=== PATIENT | female | born 1990 | race Caucasian/White ===

== ENCOUNTER 2017-06-23 02:04 | Inpatient (IN) | payer BC ==
[2017-06-23] MEDS ORDERED: Ondansetron 4 MG/2 ML SDV IVPUSH PRN ×2 (02:49→09:00)
[2017-06-23] MEDS ORDERED: Aluminum Hydroxide/Magnesium Hydroxide/Simethicone Susp 30 ML Cup PO PRN (02:49)
[2017-06-23] MEDS ORDERED: Sodium Chloride 0.9% 10 ML Syringe FLUSH PRN (02:49)
[2017-06-23] MEDS ORDERED: Lidocaine 1% 50 ML MDV INJECT ONE (02:49)
[2017-06-23] MEDS ORDERED: Nalbuphine 20 MG/1 ML Amp IVPUSH PRN (02:49)
[2017-06-23] MEDS ORDERED: Lactated Ringers 1,000 ML ONE (02:55)
[2017-06-23] MEDS: Lactated Ringers 1,000 ML IV SCH ×5 (03:00→14:57)
--- NOTE | 2017-06-23 03:08 | PCM.LDHP ---
L&D History of Present Illness - General Date of Service: 06/23/17 Admit Problem/Dx: Patient Status Order with Admit Dx/Problem 06/23/17 02:50 Patient Status [ADT] Routine Admission Diagnosis/Problem Admission Diagnosis/Problem 06/23/17 02:54 39-1/7 week intrauterine , spontaneous rupture membranes, active labor with increase in cervical dilation 06/23/17 02:55 Source of Information: Patient History Limitations: Reports: No Limitations - History of Present Illness Introduction:: Verenice is a 27-year-old 1 para 0 white female who is admitted to labor and delivery at approximately 0300 hrs. on 06/23/2017 at 38-0/7 weeks gestational age and an BATSHEVA of 06/30/2017 with reported spontaneous rupture membranes. She reports a gush of fluid initiallyand now a slow continuous involuntary leak, with symptoms starting at approximately 0015 hours on 06/23/2017. She was juan carlos minimally before that and had actually rested somewhat. She is juan carlos every 3-4 minutes now, intense in nature. Fluid is clear but minimally blood-tinged. Heart tones are reassuring although occasional variable decelerations are noted. Variability and accelerations are good. course: She is a 1 para 0 with an BATSHEVA of 06/30/2017 as based upon an early ultrasound done at 7-4/7 weeks gestational age on 12/02/2016 and supported by another ultrasound on 02/17/2017. The patient has had a relatively unremarkable course. She is a centering patient. Her first visit was on 12/02/2016. She is made regular visits. Her weight gain has been from 129.8 pounds up to 159.2 pounds for a 30 pound weight gain. Vital signs stable throughout the . Fundal height growth has been appropriate and babies been in a vertex presentation. She declined genetic evaluation. [place] depression scale score was performed on 2016 and was normal. Patient failed her 1 hour glucose tolerance test but passed her 3 hour glucose tolerance test area is group B strep negative. She is desiring epidural in labor and delivery for analgesia. She declined flu vaccination. She plans to breast-feed. laboratory testing: Blood type is AB+. Advised screen is negative. First hemoglobin was 14.4 g or deciliter. Platelets were 199,000 at that time. She is rubella immune. RPR is nonreactive. Urine cultures negative. Hepatitis B surface antigen and HIV assays were negative. Chlamydia and gonorrhea assays were both negative. Second trimester hemoglobin was 12.3 g/dL. Platelets are 169,000. Her 1 hour GTT was elevated and a 3 hour glucose tolerance test was done. At that time fasting blood sugar was 82, 1 hour sugar was 144, 2 hour sugars 126 and 3R glucose was 117. Allergies: none Medications: vitamins 1 daily Past medical history on patient has allergy to cats and hay. Past surgical history: Unremarkable Family history is positive for maternal aunt with lupus. Maternal aunt with depression/anxiety. Maternal grandmother with hepatitis C which she got from a blood transfusion. Maternal aunts with hypothyroidism. Maternal uncle with rectal cancer. Maternal grandfather with appendiceal cancer. Paternal grandfather with myeloma and paternal grandmother with colon cancer. No anesthesia, bleeding, blood clotting problems noted in the family. Social history: Patient is , lives in [place], [place]. is Octavio. She does not use any significant loss of alcohol, drugs or tobacco. Review of systems: Patient is uncomfortable secondary to contractions at this time. Otherwise reports good movement and no other concerns Skin: Negative Cardiovascular: No chest pain or exercise intolerance Respiratory: No infectious symptoms or shortness of breath Breasts: Changes associated principally. Patient plans to breast-feed GI: Negative : Increased fundal height and changes associated with . Musculoskeletal: Negative Neurological: Negative Physical exam: General patient is a well-developed, well-nourished, pleasant female of stated age in moderate distress secondary to labor. She is alert and oriented 3 and appears to be good historian. Skin is warm and dry without lesions. HEENT, neck and back within normal limits Lungs are clear with good breath sounds in all lung hunter. Cardiovascular exam shows regular rate and rhythm without murmurs Breasts exam is deferred admitted on the first visit found to be normal. Abdomen is protuberant with fundal height on last evaluation clinic on 06/20/2017 at 37+ centimeters with baby in a vertex presentation by Justice maneuver. Cervix is 4 cm dilated, 90% effaced, -1 station, anterior to mid position, grossly ruptured with pink tinged but clear amniotic fluid. Cervix is very soft. Musculoskeletal and neurological exam within normal limits. H&P Review of Systems - Review of Systems: Review Of Systems: See Below L&D Exam - Exam Exam: See Below Problem List Initiated/Reviewed/Updated: Yes Orders Last 24hrs: Active Orders 24 hr Category Date Time Status Patient Status [ADT] Routine ADT 06/23/17 02:50 Ordered Activity as Tolerated [RC] PFP Care 06/23/17 02:50 Ordered Communication Order [RC] ASDIRECTED Care 06/23/17 02:50 Ordered Heart Tones [RC] ASDIRECTED Care 06/23/17 02:50 Ordered Notify Provider Vital Signs [RC] PRN Care 06/23/17 02:49 Ordered Notify Provider [RC] PFP Care 06/23/17 02:50 Ordered Notify Provider [RC] PRN Care 06/23/17 02:50 Ordered Peripheral IV Care [RC] . DIRECTED Care 06/23/17 02:50 Ordered Pump Management, Intrathecal [RC] ASDIRECTED Care 06/23/17 02:49 Ordered Vital Signs [RC] PER UNIT ROUTINE Care 06/23/17 02:50 Ordered Regular Diet [DIET] Diet 06/22/17 Dinner Ordered CBC W/O DIFF,HEMOGRAM [HEME] Stat Lab 06/23/17 02:49 Ordered Alum Hydrox/Mag Hydrox/Simeth [Mag-Al Plus] Med 06/23/17 02:49 Ordered 30 ml PO Q8H PRN Lactated Ringers [Ringers, Lactated] 1,000 ml Med 06/23/17 03:00 Ordered IV ASDIRECTED Lidocaine 1% [Xylocaine 1%] Med 06/23/17 02:49 Once 10 ml INJECT ONETIME ONE Nalbuphine [Nubain] Med 06/23/17 02:49 Ordered 10 mg IVPUSH Q2H PRN Ondansetron [Zofran] Med 06/23/17 02:49 Ordered 4 mg IVPUSH Q4H PRN Sodium Chloride 0.9% [Saline Flush] Med 06/23/17 02:49 Ordered 10 ml FLUSH ASDIRECTED PRN Electronic Heart Tones Ext w TOCO [WOMSER] Oth 06/23/17 02:50 Ordered Routine Electronic Heart Tones Internal [WOMSER] Per Unit Oth 06/23/17 02:50 Ordered Routine Peripheral IV Insertion Adult [OM.PC] Routine Oth 06/23/17 02:50 Ordered Resuscitation Status Routine Resus Stat 06/23/17 02:49 Ordered Assessment/Plan Comment:: Assessment 1. 39-0/7 week intrauterine , spontaneous rupture membranes, active labor with change in cervical dilation 2. Group B strep status negative 3. Rubella immune 4. Patient desiring epidural in labor 5. Patient plans to breast-feed Plan: 1. Anticipate normal spontaneous vaginal delivery 2. Epidural when necessary 3. Support breast-feeding 4. Platelet count 1 CBC upon admission
[2017-06-23] MEDS ORDERED: fentaNYL 100 MCG/2 ML SDV EPIDUR PRN (09:00)
[2017-06-23] MEDS ORDERED: ePHEDrine 50 MG/ML SDV IVPUSH PRN (09:00)
[2017-06-23] MEDS ORDERED: diphenhydrAMINE 50 MG/ML SDV IVPUSH PRN (09:00)
[2017-06-23] MEDS ORDERED: Bupivacaine/fentaNYL/NS 100 ML Bag EPIDUR SCH (09:00)
--- NOTE | 2017-06-23 11:52 | PCM.PREANE ---
Preanesthetic Assessment - Anesthesia/Transfusion/Family Hx Anesthesia History: No Prior Anesthesia Family History of Anesthesia Reaction: No Transfusion History: No Prior Transfusion(s) Intubation History: Unknown - Review of Systems General: No Symptoms Pulmonary: No Symptoms Cardiovascular: No Symptoms Gastrointestinal: No Symptoms Neurological: No Symptoms Other: Reports: None - Physical Assessment Pulse: 14 O2 Sat by Pulse Oximetry: 98 Respiratory Rate: 18 Blood Pressure: 110/71 Vital Signs: Last Vital Signs Temp 36.9 C 06/23/17 02:13 Pulse 14 L 06/23/17 07:15 Resp 18 06/23/17 02:13 BP 110/71 06/23/17 02:30 Pulse Ox 98 06/23/17 02:13 Weight: 71.849 kg ASA Class: 2 Mental Status: Alert & Oriented x3 Airway Class: Mallampati = 1 Dentition: Reports: Normal Dentition Thyro-Mental Finger Breadths: 3 Mouth Opening Finger Breadths: 3 ROM/Head Extension: Full Lungs: Clear to Auscultation, Normal Respiratory Effort Cardiovascular: Regular Rate, Regular Rhythm - Lab Values: Laboratory Last Values WBC 9.16 K/mm3 (3.98-10.04) 06/23/17 03:00 RBC 4.23 M/mm3 (3.98-5.22) 06/23/17 03:00 Hgb 11.4 gm/L (11.2-15.7) 06/23/17 03:00 Hct 35.3 % (34.1-44.9) 06/23/17 03:00 MCV 83.5 fl (79.4-94.8) 06/23/17 03:00 MCH 27.0 pg (25.6-32.2) 06/23/17 03:00 MCHC 32.3 g/dl (32.2-35.5) 06/23/17 03:00 RDW Std Deviation 39.8 fL (36.4-46.3) 06/23/17 03:00 Plt Count 174 K/mm3 (182-369) L 06/23/17 03:00 MPV 11.8 fl (9.4-12.3) 06/23/17 03:00 - Allergies Allergies/Adverse Reactions: Allergies Allergy/AdvReac Type Severity Reaction Status Date / Time No Known Allergies Allergy Verified 06/23/17 09:03 - Acknowledgements Anesthesia Type Planned: Epidural Pt an Appropriate Candidate for the Planned Anesthesia: Yes Alternatives and Risks of Anesthesia Discussed w Pt/Guardian: Yes Pt/Guardian Understands and Agrees with Anesthesia Plan: Yes 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 Smoking Status *Q: Never Smoker Second Hand Smoke Exposure: No Recreational Drug Use History: No - CURRENT (IN HOUSE) MEDS Current Meds: Current Medications Al Hydroxide/Mg Hydroxide (Mag-Al Plus) 30 ml PO Q8H PRN PRN Reason: Heartburn Diphenhydramine HCl (Benadryl) 25 mg IVPUSH Q6H PRN PRN Reason: Pruritis Ephedrine Sulfate (Ephedrine Sulfate) 5 mg IVPUSH ASDIRECTED PRN PRN Reason: Hypotension Last Admin: 06/23/17 10:28 Dose: 5 mg Fentanyl (Sublimaze) 100 mcg EPIDUR ONETIME PRN PRN Reason: Pain Last Admin: 06/23/17 09:38 Dose: 100 mcg Fentanyl/Bupivacaine HCl (Fentanyl/Bupivacaine/Ns 2 Mcg-0.125% 100 Ml) 100 ml EPIDUR ASDIRECTED [facility] Last Admin: 06/23/17 09:38 Dose: 100 ml Lactated Ringer's (Ringers, Lactated) 1,000 mls @ 100 mls/hr IV ASDIRECTED [facility] Last Admin: 06/23/17 10:34 Dose: 100 mls/hr Nalbuphine HCl (Nubain) 10 mg IVPUSH Q2H PRN PRN Reason: Pain (moderate 4-6) Ondansetron HCl (Zofran) 4 mg IVPUSH Q4H PRN PRN Reason: Nausea/Vomiting Ondansetron HCl (Zofran) 4 mg IVPUSH ONETIME PRN PRN Reason: Nausea/Vomiting Sodium Chloride (Saline Flush) 10 ml FLUSH ASDIRECTED PRN PRN Reason: Keep Vein Open Discontinued Medications Lactated Ringer's (Ringers, Lactated) Confirm Administered Dose 1,000 mls @ as directed .ROUTE .STK-MED ONE Stop: 06/23/17 02:56 Lidocaine HCl (Xylocaine 1%) 10 ml INJECT ONETIME ONE Stop: 06/23/17 02:50
[2017-06-23] MEDS ORDERED: Oxytocin/Lactated Ringers 10 UNIT/1,000 ML BAG IV SCH (14:45)
[2017-06-23] MEDS ORDERED: Lidocaine 1% 50 ML MDV ONE (16:06)
[2017-06-23] MEDS ORDERED: Benzocaine/Menthol 20%-0.5% Spray 56 GM Canister TOP PRN (16:54)
[2017-06-23] MEDS ORDERED: Ibuprofen 600 MG Tab PO PRN (16:54)
[2017-06-23] MEDS ORDERED: Witch Hazel Medicated Pads 100/Jar TOP PRN (16:54)
[2017-06-23] MEDS ORDERED: Acetaminophen 325 MG Tab PO PRN (16:54)
[2017-06-23] MEDS ORDERED: Lanolin 100% Cream 7 GM Tube TOP PRN (16:54)
[2017-06-23] MEDS ORDERED: Docusate Sodium 100 MG Cap PO PRN (16:54)
--- NOTE | 2017-06-23 16:59 | PCM.SN ---
- Free Text/Narrative Note: Verenice is a 27-year-old 1 now para 1001 white female is admitted in active labor. She has an BATSHEVA of 06/30/2017 and is presently at 39-0/7 weeks gestational age. She came in on the a.m. of 05/26/2017 in active labor with spontaneous rupture membranes. Amniotic fluid was clear. Patient progressed to complete cervical dilation by approximately 1500 hrs. Approximately 1 hour and 15 minutes at which time variable decelerations were descending down into the 50s to 70s and lasting for up to 1-1/2 minutes. This is made to proceed with vacuum extraction delivery. Vacuum extraction was discussed due to the patient and her . They appear to understand and wish to proceed. Macular extraction delivery occurred at 1616 hrs. baby in STEPHANIE position. The patient pushed 1 contraction and delivered the baby relatively easily. Baby was completely delivered and placed on mom's abdomen. Cord was allowed to quit pulsating and then was cut after clamped 2. Father cut the cord. The perineum had been infiltrated with lidocaine 0.5% approximately and cc. Secondary laceration occurred along the left lateral sulcus vaginal laceration. These were repaired in routine fashion with 3-0 Monocryl. The placenta delivered. It appeared intact, complete and delivered in a Wiley presentation and was discarded patient desire. blood loss was 200 mL. She plans to nurse. Condition: Good
[2017-06-23] MEDS: Ibuprofen 200 MG Tab PO PRN (19:15)
[2017-06-23] MEDS ORDERED: Bupivacaine 0.25% 10 ML SDV ONE (22:22)
--- NOTE | 2017-06-24 08:05 | PCM48HPAN ---
Post Anesthesia Note - EVALUATION WITHIN 48HRS OF ANESTHETIC Vital Signs in Normal Range: Yes Patient Participated in Evaluation: Yes Respiratory Function Stable: Yes Airway Patent: Yes Cardiovascular Function Stable: Yes Hydration Status Stable: Yes Pain Control Satisfactory: Yes Nausea and Vomiting Control Satisfactory: Yes Mental Status Recovered: Yes Pulse Rate: 92 Resp Rate: 16 Temperature: 37.2 C Blood Pressure: 119/74 - COMMENTS/OBSERVATIONS Free Text/Narrative:: no anesthesia complications noted
[2017-06-24] MEDS: Ibuprofen 200 MG Tab PO PRN ×2 (08:19→20:27)
--- NOTE | 2017-06-24 09:38 | PCM.SN ---
- Free Text/Narrative Note: exam Afebrile, chest clear, uterus at umbilicus -1. No heavy vaginal bleeding. No leg cramping. Dr. Kate Hagen called 1700 hrs. tonight probably home tomorrow.
[2017-06-25] MEDS: Ibuprofen 200 MG Tab PO PRN (04:02)
--- NOTE | 2017-06-25 06:27 | PCM.PNPP ---
- General Info Date of Service: 06/25/17 Functional Status: Reports: Pain Controlled, Tolerating Diet, Ambulating, Urinating - Review of Systems General: Reports: No Symptoms Pulmonary: Reports: No Symptoms Cardiovascular: Reports: No Symptoms Gastrointestinal: Reports: No Symptoms Genitourinary: Reports: No Symptoms Musculoskeletal: Reports: No Symptoms - Patient Data Vital Signs - Most Recent: Last Vital Signs Temp 37.0 C 06/24/17 20:32 Pulse 105 H 06/24/17 20:32 Resp 14 06/24/17 20:32 BP 114/81 06/24/17 20:32 Pulse Ox 99 06/24/17 20:32 Weight - Most Recent: 71.849 kg I&O - Last 24 Hours: Intake & Output 06/24/17 06/24/17 06/25/17 14:59 22:59 06:59 Intake Total 240 0 Balance 240 0 Lab Results - Last 24 Hours: Laboratory Results - last 24 hr 06/24/17 Range/Units 06:25 WBC 10.87 H (3.98-10.04) K/mm3 RBC 3.35 L (3.98-5.22) M/mm3 Hgb 9.0 L (11.2-15.7) gm/L Hct 28.5 L (34.1-44.9) % MCV 85.1 (79.4-94.8) fl MCH 26.9 (25.6-32.2) pg MCHC 31.6 L (32.2-35.5) g/dl RDW Std Deviation 39.8 (36.4-46.3) fL Plt Count 132 L (182-369) K/mm3 MPV 12.1 (9.4-12.3) fl Med Orders - Current: Current Medications Acetaminophen (Tylenol) 650 mg PO Q4H PRN PRN Reason: mild pain or fever Benzocaine/Menthol (Dermoplast Pain Relief [place]) 0 gm TOP ASDIRECTED PRN PRN Reason: Perineal Comfort Measure Last Admin: 06/23/17 18:39 Dose: 1 spray Docusate Sodium (Colace) 100 mg PO BID PRN PRN Reason: Constipation Last Admin: 06/24/17 20:27 Dose: 100 mg Emollient Ointment (Lansinoh Hpa) 0 gm TOP ASDIRECTED PRN PRN Reason: Sore Nipples Ibuprofen (Motrin) 600 mg PO Q4H PRN PRN Reason: Mild pain or fever Last Admin: 06/25/17 04:02 Dose: 600 mg Witch Andreea (Tucks) 1 pad TOP ASDIRECTED PRN PRN Reason: Hemorrhoid pain Last Admin: 06/23/17 18:39 Dose: 1 pad Discontinued Medications Al Hydroxide/Mg Hydroxide (Mag-Al Plus) 30 ml PO Q8H PRN PRN Reason: Heartburn Diphenhydramine HCl (Benadryl) 25 mg IVPUSH Q6H PRN PRN Reason: Pruritis Ephedrine Sulfate (Ephedrine Sulfate) 5 mg IVPUSH ASDIRECTED PRN PRN Reason: Hypotension Last Admin: 06/23/17 10:28 Dose: 5 mg Fentanyl (Sublimaze) 100 mcg EPIDUR ONETIME PRN PRN Reason: Pain Last Admin: 06/23/17 09:38 Dose: 100 mcg Fentanyl/Bupivacaine HCl (Fentanyl/Bupivacaine/Ns 2 Mcg-0.125% 100 Ml) 100 ml EPIDUR ASDIRECTED [facility] Last Admin: 06/23/17 09:38 Dose: 100 ml Lactated Ringer's (Ringers, Lactated) 1,000 mls @ 100 mls/hr IV ASDIRECTED [facility] Last Admin: 06/23/17 14:57 Dose: 100 mls/hr Lactated Ringer's (Ringers, Lactated) Confirm Administered Dose 1,000 mls @ as directed .ROUTE .K-MED ONE Stop: 06/23/17 02:56 Oxytocin/Lactated Ringer's (Pitocin In Lr 10 Units/1,000 Ml) 10 unit in 1,000 mls @ 500 mls/hr IV ASDIRECTED [facility] Last Admin: 06/23/17 14:57 Dose: 500 mls/hr Ibuprofen (Motrin) 600 mg PO Q4H PRN PRN Reason: Mild pain or fever Lidocaine HCl (Xylocaine 1%) 10 ml INJECT ONETIME ONE Stop: 06/23/17 02:50 Last Admin: 06/23/17 18:38 Dose: 10 ml Lidocaine HCl (Xylocaine 1%) Confirm Administered Dose 50 ml .ROUTE .STK-MED ONE Stop: 06/23/17 16:07 Nalbuphine HCl (Nubain) 10 mg IVPUSH Q2H PRN PRN Reason: Pain (moderate 4-6) Ondansetron HCl (Zofran) 4 mg IVPUSH Q4H PRN PRN Reason: Nausea/Vomiting Ondansetron HCl (Zofran) 4 mg IVPUSH ONETIME PRN PRN Reason: Nausea/Vomiting Sodium Chloride (Saline Flush) 10 ml FLUSH ASDIRECTED PRN PRN Reason: Keep Vein Open - Interaction Infant Disposition, : in Room with Family Interaction: Holding Infant Infant Feeding: Breastfed Infant; Nursed Well Support Person: - Recovery Exam Fundal Tone: Firm Fundal Level: 2 Fingerbreadths Below Umbilicus Fundal Placement: Midline Lochia Amount: Small Lochia Color: Rubra/Red Perineum Description: Intact, Minimal Bruising/Swelling Episiotomy/Laceration: Approximated Bladder Status: Nonpalpable Urinary Elimination: Voided - Exam General: Alert, Oriented, Cooperative GI/Abdominal Exam: Soft, Non-Tender Extremities: Normal Inspection Skin: Warm, Dry, Intact - Problem List & Annotations (1) 39 weeks gestation of SNOMED Code(s): 94316580 Code(s): Z3A.39 - 39 WEEKS GESTATION OF Status: Acute Current Visit: Yes (2) Normal labor SNOMED Code(s): 77571998 Code(s): O80 - ENCOUNTER FOR FULL-TERM UNCOMPLICATED DELIVERY; Z37.9 - OUTCOME OF DELIVERY, UNSPECIFIED Status: Acute Current Visit: Yes (3) Vaginal delivery SNOMED Code(s): 897737745 Code(s): O80 - ENCOUNTER FOR FULL-TERM UNCOMPLICATED DELIVERY Status: Acute Current Visit: Yes - Problem List Review Problem List Initiated/Reviewed/Updated: Yes - Assessment Assessment:: PPD#2 from - Plan Plan:: \ * Routine cares * Encourage breast feeding * Discharge home today
--- NOTE | 2017-06-25 06:31 | PCM.DCSUM1 ---
Discharge Summary - Discharge Data Discharge Date: 06/25/17 Discharge Disposition: Home, Self-Care 01 Condition: Good - Discharge Diagnosis/Problem(s) (1) 39 weeks gestation of SNOMED Code(s): 51839381 ICD Code: Z3A.39 - 39 WEEKS GESTATION OF Status: Acute Current Visit: Yes (2) Normal labor SNOMED Code(s): 04762213 ICD Code: O80 - ENCOUNTER FOR FULL-TERM UNCOMPLICATED DELIVERY; Z37.9 - OUTCOME OF DELIVERY, UNSPECIFIED Status: Acute Current Visit: Yes (3) Vaginal delivery SNOMED Code(s): 472508023 ICD Code: O80 - ENCOUNTER FOR FULL-TERM UNCOMPLICATED DELIVERY Status: Acute Current Visit: Yes - Patient Summary/Data Complications: None Consults: None Recommended Follow-up Testing/Procedures: Follow up with Dr. Rocha in 2 weeks Hospital Course: 27 y/o presented at 39 1/7 wks in labor and with SROM. Progressed well. Underwent an uncomplicated . Was discharged home on PPD#2. - Patient Instructions Diet: Regular Diet as Tolerated Activity: As Tolerated Activity, Other: Pelvic Rest for 6 weeks Driving: May Drive Today Showering/Bathing: May Shower Notify Provider of: Fever, Increased Pain, Swelling and Redness, Drainage, Nausea and/or Vomiting - Discharge Plan Home Medications: Home Meds Docusate Sodium [Colace] 100 mg PO BID PRN cap 06/25/17 [Rx] Ibuprofen [Motrin] 600 mg PO Q4H PRN tablet 06/25/17 [Rx] Patient Handouts: Home Care Instructions for Mom, Challenges and Solutions Referrals: Lori Lvoe MD [Physician] - (Dr. Rocha in 2 weeks ) - Discharge Summary/Plan Comment DC Time >30 min.: No - Patient Data Vitals - Most Recent: Last Vital Signs Temp 37.0 C 06/24/17 20:32 Pulse 105 H 06/24/17 20:32 Resp 14 06/24/17 20:32 BP 114/81 06/24/17 20:32 Pulse Ox 99 06/24/17 20:32 Weight - Most Recent: 71.849 kg I&O - Last 24 hours: Intake & Output 06/24/17 06/24/17 06/25/17 14:59 22:59 06:59 Intake Total 240 0 Balance 240 0 Lab Results - Last 24 hrs: Laboratory Results - last 24 hr 06/24/17 Range/Units 06:25 WBC 10.87 H (3.98-10.04) K/mm3 RBC 3.35 L (3.98-5.22) M/mm3 Hgb 9.0 L (11.2-15.7) gm/L Hct 28.5 L (34.1-44.9) % MCV 85.1 (79.4-94.8) fl MCH 26.9 (25.6-32.2) pg MCHC 31.6 L (32.2-35.5) g/dl RDW Std Deviation 39.8 (36.4-46.3) fL Plt Count 132 L (182-369) K/mm3 MPV 12.1 (9.4-12.3) fl Med Orders - Current: Current Medications Acetaminophen (Tylenol) 650 mg PO Q4H PRN PRN Reason: mild pain or fever Benzocaine/Menthol (Dermoplast Pain Relief [place]) 0 gm TOP ASDIRECTED PRN PRN Reason: Perineal Comfort Measure Last Admin: 06/23/17 18:39 Dose: 1 spray Docusate Sodium (Colace) 100 mg PO BID PRN PRN Reason: Constipation Last Admin: 06/24/17 20:27 Dose: 100 mg Emollient Ointment (Lansinoh Hpa) 0 gm TOP ASDIRECTED PRN PRN Reason: Sore Nipples Ibuprofen (Motrin) 600 mg PO Q4H PRN PRN Reason: Mild pain or fever Last Admin: 06/25/17 04:02 Dose: 600 mg Witch Andreea (Tucks) 1 pad TOP ASDIRECTED PRN PRN Reason: Hemorrhoid pain Last Admin: 06/23/17 18:39 Dose: 1 pad Discontinued Medications Al Hydroxide/Mg Hydroxide (Mag-Al Plus) 30 ml PO Q8H PRN PRN Reason: Heartburn Diphenhydramine HCl (Benadryl) 25 mg IVPUSH Q6H PRN PRN Reason: Pruritis Ephedrine Sulfate (Ephedrine Sulfate) 5 mg IVPUSH ASDIRECTED PRN PRN Reason: Hypotension Last Admin: 06/23/17 10:28 Dose: 5 mg Fentanyl (Sublimaze) 100 mcg EPIDUR ONETIME PRN PRN Reason: Pain Last Admin: 06/23/17 09:38 Dose: 100 mcg Fentanyl/Bupivacaine HCl (Fentanyl/Bupivacaine/Ns 2 Mcg-0.125% 100 Ml) 100 ml EPIDUR ASDIRECTED [facility] Last Admin: 06/23/17 09:38 Dose: 100 ml Lactated Ringer's (Ringers, Lactated) 1,000 mls @ 100 mls/hr IV ASDIRECTED [facility] Last Admin: 06/23/17 14:57 Dose: 100 mls/hr Lactated Ringer's (Ringers, Lactated) Confirm Administered Dose 1,000 mls @ as directed .ROUTE .STK-MED ONE Stop: 06/23/17 02:56 Oxytocin/Lactated Ringer's (Pitocin In Lr 10 Units/1,000 Ml) 10 unit in 1,000 mls @ 500 mls/hr IV ASDIRECTED [facility] Last Admin: 06/23/17 14:57 Dose: 500 mls/hr Ibuprofen (Motrin) 600 mg PO Q4H PRN PRN Reason: Mild pain or fever Lidocaine HCl (Xylocaine 1%) 10 ml INJECT ONETIME ONE Stop: 06/23/17 02:50 Last Admin: 06/23/17 18:38 Dose: 10 ml Lidocaine HCl (Xylocaine 1%) Confirm Administered Dose 50 ml .ROUTE .STK-MED ONE Stop: 06/23/17 16:07 Nalbuphine HCl (Nubain) 10 mg IVPUSH Q2H PRN PRN Reason: Pain (moderate 4-6) Ondansetron HCl (Zofran) 4 mg IVPUSH Q4H PRN PRN Reason: Nausea/Vomiting Ondansetron HCl (Zofran) 4 mg IVPUSH ONETIME PRN PRN Reason: Nausea/Vomiting Sodium Chloride (Saline Flush) 10 ml FLUSH ASDIRECTED PRN PRN Reason: Keep Vein Open *Q Meaningful Use (DIS) - VTE *Q VTE Criteria *Q: - Stroke *Q Stroke Criteria *Q: - AMI *Q AMI Criteria *Q:
== END 2017-06-25 11:30 | disposition home or self-care (01) | DRG 560 ==
LOC: JD.OBCHECK 02:04 → JD.OB 02:09 → JD.OBCHECK 02:49 → JD.OB 02:58 → OBSVTOIN 16:51
PROVIDERS: ADMIT Obstetrics & Gynecology; ATTEND Obstetrics & Gynecology
PROC: 10D07Z6 Extraction of Products of Conception, Vacuum, Via Natural or Artificial Opening (ICD-10-PCS; principal; 2017-06-23)
PROC: 00HU33Z Insertion of Infusion Device into Spinal Canal, Percutaneous Approach (ICD-10-PCS; 2017-06-23)
PROC: 3E0R3BZ Introduction of Anesthetic Agent into Spinal Canal, Percutaneous Approach (ICD-10-PCS; 2017-06-23)
DX: O42.02 Full-term premature rupture of membranes, onset of labor within 24 hours of rupture (principal); Z3A.39 39 weeks gestation of pregnancy; Z37.0 Single live birth; O70.1 Second degree perineal laceration during delivery; O76 Abnormality in fetal heart rate and rhythm complicating labor and delivery
CPT/HCPCS: 36415; 51702; 59300; 59409; 85027; A9270-GY; J2590; J3010; J7120

== ENCOUNTER 2022-12-29 23:13 | Inpatient (IN) | payer BC ==
[2022-12-29] MEDS ORDERED: Nalbuphine 10 MG/0.5 ML Syringe IVPUSH PRN (23:27)
[2022-12-29] MEDS ORDERED: Lidocaine 1% 50 ML MDV INJECT ONE (23:27)
[2022-12-29] MEDS ORDERED: Ondansetron 4 MG/2 ML SDV IVPUSH PRN (23:27)
[2022-12-29] MEDS ORDERED: Sodium Chloride 0.9% 10 ML Syringe FLUSH PRN (23:27)
[2022-12-29] MEDS: Lactated Ringers 1,000 ML IV SCH (23:30)
[2022-12-29] MEDS ORDERED: Oxytocin/Lactated Ringers 10 UNIT/1,000 ML BAG IV SCH (23:30)
[2022-12-29 23:43] LABS: BASOPHILS PERCENT AUTO 0.3 % (0.0-1.0); EOSINOPHILS ABSOLUTE AUTO 0.2 K/mm3 (0.0-0.4); EOSINOPHILS PERCENT AUTO 2.2 % (0.0-6.0); HEMATOCRIT 32.5 % (37.0-47.0); HEMOGLOBIN 10.3 gm/dl (12.0-16.0); IMMATURE GRAN ABSOLUTE AUTO 0.03 K/mm3 (0.00-0.05); IMMATURE GRAN PERCENT AUTO 0.3 % (0.0-0.4); LYMPHOCYTES ABSOLUTE AUTO 1.5 K/mm3 (1.0-4.8); LYMPHOCYTES PERCENT AUTO 16.5 % (24.0-44.0); MEAN CORPUSCULAR HEMOGLOBIN 25.1 pg (28.0-32.0); MEAN CORPUSCULAR HGB CONC 31.7 g/dl (32.0-36.0); MEAN CORPUSCULAR VOLUME 79.3 fl (83.0-99.0); MEAN PLATELET VOLUME 11.2 fl (9.4-12.3); MONOCYTES ABSOLUTE AUTO 0.7 K/mm3 (0.0-0.8); MONOCYTES PERCENT AUTO 7.8 % (0.0-8.0); NEUTROPHILS ABSOLUTE AUTO 6.6 K/mm3 (1.8-7.7); NEUTROPHILS PERCENT AUTO 72.9 % (41.0-71.0); PLATELET COUNT,PLT 148 K/mm3 (150-400); WHITE BLOOD CELL COUNT,WBC 9.08 K/mm3 (3.9-11.3)
[2022-12-29] MEDS ORDERED: fentaNYL 100 MCG/2 ML SDV EPIDUR PRN (23:55)
[2022-12-29] MEDS ORDERED: diphenhydrAMINE 50 MG/ML SDV IVPUSH PRN (23:55)
[2022-12-29] MEDS ORDERED: ePHEDrine 50 MG/ML SDV IVPUSH PRN (23:55)
[2022-12-29] MEDS ORDERED: Bupivacaine/fentaNYL/NS 100 ML Bag EPIDUR PRN (23:55)
[2022-12-30] MEDS ORDERED: Bupivacaine 0.25% 10 ML SDV ONE
[2022-12-30] MEDS: Lactated Ringers 1,000 ML IV SCH ×2 (00:29→03:15)
[2022-12-30] MEDS ORDERED: Ibuprofen 600 MG Tab PO PRN (05:11)
[2022-12-30] MEDS ORDERED: Benzocaine/Menthol 20%-0.5% Spray 78 GM Cannister TOP PRN (05:11)
[2022-12-30] MEDS ORDERED: Acetaminophen 325 MG Tab PO PRN (05:11)
[2022-12-30] MEDS ORDERED: Docusate Sodium 100 MG Cap PO PRN (05:11)
[2022-12-30] MEDS ORDERED: Witch Hazel Medicated Pads 40/Jar TOP PRN (05:11)
[2022-12-30] MEDS ORDERED: Sodium Chloride 0.9% 10 ML Syringe FLUSH SCH (09:00)
== END 2022-12-31 13:38 | disposition home or self-care (01) | DRG 560 ==
LOC: JD.OBCHECK 23:13 → JD.OB 23:27 → JD.OBCHECK 23:27 → JD.OB 23:29 → OBSVTOIN 12-30 04:42 → JD.OB 12-30 04:43
PROVIDERS: ADMIT Obstetrics & Gynecology; ATTEND Obstetrics & Gynecology
PROC: 10E0XZZ Delivery of Products of Conception, External Approach (ICD-10-PCS; principal; 2022-12-30)
PROC: 0KQM0ZZ Repair Perineum Muscle, Open Approach (ICD-10-PCS; 2022-12-30)
PROC: 3E0R3BZ Introduction of Anesthetic Agent into Spinal Canal, Percutaneous Approach (ICD-10-PCS; 2022-12-30)
PROC: 00HU33Z Insertion of Infusion Device into Spinal Canal, Percutaneous Approach (ICD-10-PCS; 2022-12-30)
DX: O48.0 Post-term pregnancy (principal); Z37.0 Single live birth; O70.1 Second degree perineal laceration during delivery; Z3A.40 40 weeks gestation of pregnancy; Z98.890 Other specified postprocedural states
CPT/HCPCS: 01967; 36415; 51702; 59025; 59409; 85025; 86592; 86850; 86900; 86901; J2590; J3010; J3490; J7120

== ENCOUNTER 2025-01-03 18:30 | Emergency (ER) | payer BC ==
[2025-01-03 20:33] LABS: BASOPHILS ABSOLUTE AUTO 0.0 K/mm3 (0.0-0.2); BASOPHILS PERCENT AUTO 0.2 % (0.0-1.0); EOSINOPHILS ABSOLUTE AUTO 0.0 K/mm3 (0.0-0.4); EOSINOPHILS PERCENT AUTO 0.0 % (0.0-6.0); IMMATURE GRAN ABSOLUTE AUTO 0.06 K/mm3 (0.00-0.05); IMMATURE GRAN PERCENT AUTO 0.3 % (0.0-0.4); LYMPHOCYTES ABSOLUTE AUTO 0.7 K/mm3 (1.0-4.8); LYMPHOCYTES PERCENT AUTO 4.2 % (24.0-44.0); MEAN PLATELET VOLUME 10.4 fl (9.4-12.3); MONOCYTES ABSOLUTE AUTO 1.2 K/mm3 (0.0-0.8); MONOCYTES PERCENT AUTO 6.8 % (0.0-8.0); NEUTROPHILS ABSOLUTE AUTO 15.5 K/mm3 (1.8-7.7); NEUTROPHILS PERCENT AUTO 88.5 % (41.0-71.0); NRBC ABSOLUTE 0.00 (0.00-0.02); NRBC PERCENT 0.0 % (0.0-0.2); PLATELET COUNT,PLT 191 K/mm3 (150-400); RED BLOOD CELL COUNT 4.36 M/mm3 (4.10-5.30); WHITE BLOOD CELL COUNT,WBC 17.50 K/mm3 (3.9-11.3)
[2025-01-03 21:03] LABS: APPEARANCE,URINE CLEAR (Clear); GLUCOSE,URINE NEGATIVE (Negative); OCCULT BLOOD,URINE 2+ (Negative)
[2025-01-03 21:11] LABS: EPITHELIAL CELLS,URINE 0-5 /hpf (0-5)
[2025-01-03 21:15] LABS: A/G RATIO 0.9 (1-2); ALANINE AMINOTRANSFERASE,ALT 13.0 U/L (14-59); ASPARTATE AMNIOTRANSFERASE,AST 10.0 U/L (15-37); BILIRUBIN TOTAL 2.3 mg/dL (0.2-1.0); BLOOD UREA NITROGEN,BUN 10.0 mg/dL (7-18); CARBON DIOXIDE,CO2 22.0 mEq/L (21-32); CHLORIDE,CL 102.0 mEq/L (98-107); CREATININE 0.7 mg/dL (0.55-1.02); EST CRCL DRUG DOSING (CG) 110.12 mL/min; ESTIMATED GFR 116.0 mL/min (>60); GLUCOSE RANDOM 117.0 mg/dL (70-99); POTASSIUM,K 3.4 mEq/L (3.5-5.1); PROTEIN TOTAL,TP 6.8 g/dl (6.4-8.2); SODIUM,NA 135.0 mEq/L (136-145)
[2025-01-03 21:39] LABS: HCG QUANTITATIVE 102941.0 mIU/mL
[2025-01-03] MEDS ORDERED: CEFTRIAXONE IV ONE (22:15)
[2025-01-03] MEDS ORDERED: SODIUM CHLORIDE 0.9% IV ONE (22:15)
== END 2025-01-04 00:17 ==
LOC: JD.ED 18:30
DX: O99.891 Other specified diseases and conditions complicating pregnancy (principal); N13.2 Hydronephrosis with renal and ureteral calculous obstruction; Z3A.10 10 weeks gestation of pregnancy
CPT/HCPCS: 36415; 76705; 76817; 80053; 81001; 83690; 84702; 85025; 87086; 87088; 87186; 96365; 99285; J0696